=== PATIENT | male | born 1955 | race Asian ===

== ENCOUNTER 2022-05-29 00:21 | Emergency (ER) | payer SELFPAY ==
[~2022-05-29] VITALS: Ht 160 cm; Wt 63.5 kg
[~2022-05-29 00:21] MED LIST: Metformin HCl500 MG PO; Norco 5-325 Ta1 EACH PO; WARF1 PO; WARF4 PO
== END 2022-05-29 02:02 | disposition left against medical advice (07) ==
LOC: ER 00:21
DX: R07.9 Chest pain, unspecified (principal); Z53.21 Procedure and treatment not carried out due to patient leaving prior to being seen by health care provider
CPT/HCPCS: 99281